=== PATIENT | male | born 1950 | race African-American/Black ===

== ENCOUNTER → 2017-11-12 | Day surgery (SDC) | payer OTHER ==
--- NOTE | 2017-11-06 11:51 | Diagnostic Imaging Report ---
EXAMINATION: CHEST 2 VIEWS INDICATION: Pre-admit COMPARISON: None FINDINGS: TUBES and LINES: None. LUNGS: Lungs are well inflated. Lungs are clear. There is no evidence of pneumonia or pulmonary edema. PLEURA: No pleural effusion or pneumothorax. HEART AND MEDIASTINUM: The cardiomediastinal silhouette is unremarkable. Surgical clips project over the upper mediastinum. BONES AND SOFT TISSUES: No acute osseous lesion. Soft tissues are unremarkable. Status post median sternotomy. UPPER ABDOMEN: No free air under the diaphragm. IMPRESSION: No acute thoracic abnormality. Signed by: Dr. Danette Ramsay MD on 11/06/2017 11:47 AM
[2017-11-06 11:55] LABS: BASOPHILS % 0.9 % (0.0-1.0); EOSINOPHILS # (AUTO) 0.2 (0.0-0.4); EOSINOPHILS % 5.8 % (0.0-6.0); HEMATOCRIT 42.1 % (38.2-49.6); HEMOGLOBIN 14.2 g/dL (14.0-18.0); LYMPHOCYTES % 31.7 % (18.0-39.1); MEAN CORPUSCULAR HEMOGLOBIN 29.8 pg (28-32); MEAN CORPUSCULAR HGB CONC 33.7 g/dL (31-35); MEAN CORPUSCULAR VOLUME 88.4 fL (81-99); MONOCYTES # (AUTO) 0.6 (0.2-0.8); MONOCYTES % 18.3 % (4.4-11.3); NEUTROPHILS # (AUTO) 1.4 (2.1-6.9); NEUTROPHILS % 43.3 % (38.7-80.0); PLATELET COUNT 176 x10e3/uL (140-360); RED BLOOD COUNT 4.76 x10e6/uL (4.3-5.7); RED CELL DISTRIBUTION WIDTH 13.3 % (11.7-14.4)
[2017-11-06 12:14] LABS: ANION GAP 14.3 mmol/L (8-16); BLOOD UREA NITROGEN 12 mg/dL (7-26); BUN/CREATININE RATIO 10 (6-25); CARBON DIOXIDE 27 mmol/L (22-29); CHLORIDE 104 mmol/L (98-107); CREATININE, SERUM 1.18 mg/dL (0.72-1.25); EST GLOMERULAR FILTRATION RATE > 60 ML/MIN (60-); GLUCOSE 93 mg/dL (74-118); POTASSIUM 4.3 mmol/L (3.5-5.1); SODIUM 141 mmol/L (136-145)
[~2017-11-12] MED LIST: BUPIVACAINE 0.25% 30ML SDV INJ ONE; CEFTRIAXONE SOD 1 GM VIAL ONE; CRESTOR10 MG; DEXAMETHASONE SOD PHOS INJ 4 MG/ML VIAL ONE; FENTANYL CITRATE/PF 100MCG/2 ML INJ ONE; KETOROLAC TROMETHAMINE 30 MG/ML VIAL ONE; LIDOCAINE HCL 2% LOCAL INJ 5 ML SDV VIAL INJ ONE; MIDAZOLAM HCL 2 MG/2 ML VIAL ONE; ONDANSETRON HCL INJ 2 MG/ML VIAL ONE; PROPOFOL IV EMULSION 10 MG/ML 20 ML VIAL ONE; RED RICE; SEVOFLURANE INHAL SOLN 250 ML PEN BTL ONE
[2017-11-12 16:00] VITALS: BP 110/63
--- NOTE | 2017-11-23 00:38 | Operative Report ---
DATE OF PROCEDURE: November 12, 2017 PREOPERATIVE DIAGNOSIS: Bilateral recurrent epididymitis. POSTOPERATIVE DIAGNOSIS: Bilateral recurrent epididymitis. OPERATIVE PROCEDURE PERFORMED: Bilateral epididymectomy. ANESTHESIA: General anesthesia. ESTIMATED BLOOD LOSS: Minimal. INDICATIONS: Mr. Gordy Salmeron is a 67-year-old gentleman who has a history of bilateral recurrent epididymitis and a large thickened and tender examination. He now presents for definitive surgical management of this problem. PROCEDURE IN DETAIL: The patient was brought into the operating room and placed in supine position, and after administration of general anesthesia, was prepped and draped in usual sterile fashion. A horizontal incision was made over the right hemiscrotum and dissection was carried out through the layers of the scrotum. The tunica vaginalis was entered and the testicle delivered from the field. The epididymis was noted to be mildly indurated at its head, but in its tail and in the proximal vas, it was thickened and almost calcified. Using the Iris scissors, the body and tail of the epididymis was carefully dissected off of the testicle taking great care to prevent injury to the blood supply. All of the proximal vas up to the level of the external ring was also dissected free. At this point, it was suture ligated and cut. The cut edge end of the vas was fulgurated using electrocautery device. It was allowed to retract up. Once adequate hemostasis was obtained in the hemiscrotum, the testicle was returned to its normal anatomic position in that scrotum, and the scrotum closed in layers with running chromic suture. A similar procedure was performed on the left side. Again, the tunica vaginalis was entered without incident. Again, the vas was thickened and calcified. There were no focal masses noted. The body and tail of the epididymis were dissected from the surrounding testicular structures again taking great care to prevent injury to the main blood supply to the testicle. The vas was then dissected up to level of the external ring where again it was ligated, and the cut end fulgurated with the electrocautery device. Once adequate hemostasis was obtained in the scrotum on that side, the testicle was returned to its normal anatomical position. A 1/4-inch [place] drain was placed on that site so as to ensure no accumulation of fluid or blood. This was secured to the skin using running chromic suture. The scrotal incision was then reapproximated and closed using running chromic sutures. The wound was then cleaned and dried and covered with Telfa, sterile fluffs, and draped in scrotal support. Anesthesia was reversed and the patient was transferred to a bed and taken to the postanesthesia care unit in good condition. Of note, the needle and instrument counts were correct at the conclusion of the case. Job#: [id number]
== END | disposition home or self-care (01) ==
LOC: OR 09:42
PROVIDERS: ATTEND Urology
DX: N45.1 Epididymitis (principal); N43.40 Spermatocele of epididymis, unspecified; I25.810 Atherosclerosis of coronary artery bypass graft(s) without angina pectoris; Z01.810 Encounter for preprocedural cardiovascular examination; F41.9 Anxiety disorder, unspecified; Z01.812 Encounter for preprocedural laboratory examination; Z01.818 Encounter for other preprocedural examination; Z95.5 Presence of coronary angioplasty implant and graft; Z95.1 Presence of aortocoronary bypass graft; Z87.891 Personal history of nicotine dependence
CPT/HCPCS: 36415; 54861; 71046; 80048; 85025; 88305; 93005; J0696; J1100; J1885; J2001; J2250; J2405; 88302